=== PATIENT | female | born 1975 | race Caucasian/White ===

== ENCOUNTER 2017-10-24 14:12 | Emergency (ER) | payer OTHER ==
[~2017-10-24] VITALS: Ht 167.6 cm; Wt 118.6 kg
[2017-10-24 14:19] VITALS: TEMP 98.9
[2017-10-24 15:22] LABS: BASO # 0.1 (0.0-0.2); BASO % 0.5 % (0.0-2.0); EOS # 0.4 (0.0-0.7); EOS % 4.6 % (0-4.0); GRAN # 5.8 (1.4-6.5); GRAN % 62.5 % (42.2-75.2); HEMOGLOBIN 12.2 g/dl (12.5-16.0); LYMPH # 2.5 (1.2-3.4); LYMPH % 26.8 % (20.0-51.0); MEAN CELL VOLUME 82 fl (80.0-100.0); MEAN CORPUSCULAR HEMOGLOBIN 28 pg (27.0-31.0); MEAN CORPUSCULAR HGB CONC 35 g/dl (33.0-37.0); MONO # 0.5 (0.1-0.6); MONO % 5.1 % (1.7-9.3); PLATELET COUNT 326 K/mm3 (130-400); RED BLOOD COUNT 4.31 M/mm3 (4.10-5.30); WHITE BLOOD COUNT 9.2 K/mm3 (4.8-10.8)
[2017-10-24 15:23] LABS: HEMATOCRIT 35.4 % (37.0-47.0)
[2017-10-24 15:31] LABS: ADJUSTED CALCIUM 9.1 mg/dL (8.4-10.2); ALANINE AMINOTRANSFERASE 43 U/L (9-52); ALBUMIN 4.5 gm/dL (3.5-5.0); ALKALINE PHOSPHATASE 117 U/L (50-136); ANION GAP 11 mmol/L (7-16); BILIRUBIN,TOTAL 0.5 mg/dL (0.0-1.0); BLOOD UREA NITROGEN 12 mg/dL (7-17); C-REACTIVE PROTEIN 1.5 mg/dL (0.0-0.9); CALCIUM 9.5 mg/dL (8.4-10.2); CARBON DIOXIDE 23 mmol/L (22-30); CHLORIDE 103 mmol/L (98-107); CREATININE, serum 0.88 mg/dL (0.52-1.25); GLUCOSE 83 mg/dL (74-106); LIPASE 139 U/L (23-300); SODIUM 138 mmol/L (137-145); TOTAL PROTEIN 7.8 gm/dL (6.4-8.2)
[2017-10-24] MEDS ORDERED: EFFEXOR XR37.5 MG/CA PO (15:32)
[2017-10-24] MEDS ORDERED: MASON NATURAL2000 IU (15:32)
[2017-10-24] MEDS ORDERED: PRILOSEC 20MG20 MG PO (15:33)
[2017-10-24] MEDS ORDERED: GLUCOPHAGE XR500 M1 PO (15:33)
[2017-10-24 15:43] LABS: TROPONIN-I < 0.012 ng/mL (0.000-0.034)
[2017-10-24] MEDS ORDERED: ATIVAN 0.50.5 MG/TAB PO (15:58)
[2017-10-24 16:05] VITALS: BP 139/89; PULSE 76
== END 2017-10-24 16:11 | disposition home or self-care (01) ==
LOC: COL.ER 14:12
PROVIDERS: Emergency Medicine
DX: F41.9 Anxiety disorder, unspecified (principal); Z79.84 Long term (current) use of oral hypoglycemic drugs

== ENCOUNTER 2018-03-24 11:47 | Emergency (ER) | payer OTHER ==
[~2018-03-24] VITALS: Ht 167.6 cm; Wt 113.6 kg
[~2018-03-24 11:47] MED LIST: ATIVAN 0.50.5 MG/TAB PO; EFFEXOR XR37.5 MG/CA PO; GLUCOPHAGE XR500 M1 PO; MASON NATURAL2000 IU; PRILOSEC 20MG20 MG PO
[2018-03-24 12:10] VITALS: TEMP 97.9
[2018-03-24 12:22] LABS: BASO # 0.1 (0.0-0.2); BASO % 0.7 % (0.0-2.0); EOS # 0.3 (0.0-0.7); EOS % 3.5 % (0-4.0); GRAN # 5.2 (1.4-6.5); GRAN % 60.8 % (42.2-75.2); HEMOGLOBIN 12.6 g/dl (12.5-16.0); LYMPH # 2.5 (1.2-3.4); LYMPH % 28.8 % (20.0-51.0); MEAN CELL VOLUME 80 fl (80.0-100.0); MEAN CORPUSCULAR HEMOGLOBIN 27 pg (27.0-31.0); MEAN CORPUSCULAR HGB CONC 34 g/dl (33.0-37.0); MONO # 0.5 (0.1-0.6); MONO % 5.6 % (1.7-9.3); PLATELET COUNT 316 K/mm3 (130-400); RED BLOOD COUNT 4.61 M/mm3 (4.10-5.30); REDCELL DISTRIBUTION WIDTH-CV 13.8 % (11.5-14.5)
[2018-03-24 12:32] LABS: BILIRUBIN,TOTAL 0.6 mg/dL (0.0-1.0); CALCIUM 10.4 mg/dL (8.4-10.2); CREATININE, serum 0.91 mg/dL (0.52-1.25); POTASSIUM 4.6 mmol/L (3.4-5.0); TOTAL PROTEIN 8.1 gm/dL (6.4-8.2)
[2018-03-24] MEDS ORDERED: PROTONIX 40MG T40 MG PO (14:11)
[2018-03-24] MEDS ORDERED: CARAFATE 1GM1 G PO (14:11)
[2018-03-24 14:35] VITALS: BP 112/63; PULSE 68
== END 2018-03-24 14:37 | disposition home or self-care (01) ==
LOC: COL.ER 11:47
PROVIDERS: Emergency Medicine
DX: K21.9 Gastro-esophageal reflux disease without esophagitis (principal); F41.9 Anxiety disorder, unspecified; Z90.49 Acquired absence of other specified parts of digestive tract; Z98.51 Tubal ligation status; Z79.84 Long term (current) use of oral hypoglycemic drugs